=== PATIENT | female | born 1980 | race Caucasian/White ===

== ENCOUNTER 2017-10-26 23:26 | Outpatient (CLI) | payer SELFPAY, OTHER ==
[2017-10-27 03:04] LABS: ADD UMIC YES; UR ASCORBIC ACID NEGATIVE (NEGATIVE); UR BACTERIA FEW /HPF (NONE SEEN); UR BILIRUBIN (Dip) NEGATIVE (NEGATIVE); UR BLOOD (Dip) 1+ mg/dL (NEGATIVE); UR BUDDING YEAST FEW /HPF (NONE SEEN); UR CLARITY SLIGHTLY CLOUDY (CLEAR); UR COLOR YELLOW (YELLOW); UR GLUCOSE (Dip) 3+ mg/dL (NEGATIVE); UR KETONES (Dip) TRACE mg/dL (NEGATIVE); UR LEUKOCYTE ESTERASE (Dip) 2+ Leu/ul (NEGATIVE); UR NITRITE (Dip) NEGATIVE (NEGATIVE); UR RBC 1 /HPF (0-5); UR SPECIFIC GRAVITY (Dip) 1.037 (1.003-1.030); UR SQUAMOUS EPITHELIAL CELL FEW /HPF (FEW); UR TOTAL PROTEIN (Dip) NEGATIVE (NEGATIVE); UR UROBILINOGEN (Dip) NEGATIVE (NEGATIVE); UR WBC 9 /HPF (0-5)
[2017-10-27] MEDS: CEFTRIAXONE 1 GM INJ IM (04:07)
== END 2017-10-27 04:13 | disposition home or self-care (01) ==
LOC: OBT 23:26 → L-D 23:27
DX: O24.415 Gestational diabetes mellitus in pregnancy, controlled by oral hypoglycemic drugs (principal); O13.3 Gestational [pregnancy-induced] hypertension without significant proteinuria, third trimester; O34.219 Maternal care for unspecified type scar from previous cesarean delivery; O99.213 Obesity complicating pregnancy, third trimester; E66.01 Morbid (severe) obesity due to excess calories; O09.523 Supervision of elderly multigravida, third trimester; Z3A.31 31 weeks gestation of pregnancy
CPT/HCPCS: 76817; 76818; 81001; 82731; 87086; 96372

== ENCOUNTER 2017-11-22 15:40 | Inpatient (IN) | payer OTHER ==
[2017-11-22 16:34] LABS: ADD MAN DIFF? NO
[2017-11-22 16:36] LABS: BASOPHILS % 0.3 % (0.0-2.0); EOSINOPHILS % 0.1 % (0.0-7.0); HEMATOCRIT 36.5 % (37.0-47.0); HEMOGLOBIN 12.3 g/dl (12.0-16.0); LYMPHOCYTES # 1.8 10^3/ul (0.8-2.9); LYMPHOCYTES % 24.7 % (15.0-51.0); MEAN CORPUSCULAR HEMOGLOBIN 31.1 pg (29.0-33.0); MEAN CORPUSCULAR HGB CONC 33.7 g/dl (32.0-37.0); MEAN CORPUSCULAR VOLUME 92.2 fl (82.0-101.0); MEAN PLATELET VOLUME 12.2 fl (7.4-10.4); MONOCYTE # 0.4 10^3/ul (0.3-0.9); MONOCYTES % 5.9 % (0.0-11.0); NEUTROPHILS % 68.6 % (39.0-77.0); PLATELET COUNT 271 10^3/UL (140-415); RED BLOOD COUNT 3.96 10^6/ul (4.20-5.40); RED CELL DISTRIBUTION WIDTH 12.6 % (11.5-14.5)
[2017-11-22 16:36] LABS: WHITE BLOOD COUNT 7.3 10^3/ul (4.8-10.8)
[2017-11-22 17:21] LABS: ALANINE AMINOTRANSFERASE 22 IU/L (13-69); ALBUMIN 3.1 g/dl (3.3-4.9); ALBUMIN/GLOBULIN RATIO 0.86; ALKALINE PHOSPHATASE 197 IU/L (42-121); ANION GAP 17 (8-16); ASPARTATE AMINO TRANSFERASE 22 IU/L (15-46); BILIRUBIN,INDIRECT 0.3 mg/dl (0-1.1); BILIRUBIN,TOTAL 0.3 mg/dl (0.2-1.3); BLOOD UREA NITROGEN 8 mg/dl (7-20); CALCIUM 9.3 mg/dl (8.4-10.2); CARBON DIOXIDE 17 mmol/L (21-31); CHLORIDE 104 mmol/L (97-110); CREATININE 0.58 mg/dl (0.44-1.00); GLUCOSE 365 mg/dl (70-220); POTASSIUM 4.3 mmol/L (3.5-5.1); SODIUM 134 mmol/L (135-144); TOTAL PROTEIN 6.7 g/dl (6.1-8.1); URIC ACID 6.6 mg/dl (3.1-7.9)
[2017-11-22] MEDS: ACCU-CHEK XX ×4 (17:33→21:16)
[2017-11-22 17:55] LABS: FREE T4 (FREE THYROXINE) 1.21 ng/dl (0.79-2.35)
[2017-11-22 17:55] LABS: FREE T3 3.03 pg/ml (2.77-5.27)
[2017-11-22 19:31] LABS: HEMOGLOBIN A1C 10.4 % (0-5.9)
[2017-11-22] MEDS ORDERED: GLUCOSE GEL 15 GRAM TUBE BUCCAL (21:00)
[2017-11-22] MEDS ORDERED: GLUCAGON 1 MG INJ IM (21:00)
[2017-11-22] MEDS ORDERED: GLUCOSE GEL 15 GRAM TUBE PO ×2 (21:00)
[2017-11-22] MEDS ORDERED: DEXTROSE 50% 50 ML SYRINGE IV ×2 (21:00)
[2017-11-22] MEDS: INSULIN ASPART [NOVOLOG] 3 ML PEN SC (21:34)
[2017-11-23] MEDS: INSULIN ASPART [NOVOLOG] 3 ML PEN SC ×3 (02:23→17:42)
[2017-11-23] MEDS: ACCU-CHEK XX ×8 (08:01→21:40)
[2017-11-23 16:50] LABS: COLLECTION PERIOD 24 hrs
[2017-11-23 18:56] LABS: COLLECTION PERIOD 24 hrs; CREATININE CLEARANCE 93.8 mls/min (84.0-162.0); CREATININE,URINE RANDOM 149.15 mg/dl (20-320); SCRET 0.58 mg/dl (0.44-1.00); VOLUME 525 ml/24hrs; VOLUME 525 mls
[2017-11-23] MEDS: NPH, HUMAN INSULIN ISOPHANE 3ML VIAL SC (20:10)
[2017-11-24] MEDS: ACCU-CHEK XX ×8 (07:30→22:19)
[2017-11-24] MEDS: INSULIN ASPART [NOVOLOG] 3 ML PEN SC ×2 (08:36→17:55)
[2017-11-24] MEDS: NPH, HUMAN INSULIN ISOPHANE 3ML VIAL SC ×2 (08:38→20:32)
[2017-11-24 15:19] LABS: ADD UMIC YES; UR ASCORBIC ACID NEGATIVE (NEGATIVE); UR BILIRUBIN (Dip) NEGATIVE (NEGATIVE); UR BLOOD (Dip) NEGATIVE (NEGATIVE); UR CLARITY CLEAR (CLEAR); UR COLOR YELLOW (YELLOW); UR GLUCOSE (Dip) NEGATIVE (NEGATIVE); UR KETONES (Dip) NEGATIVE (NEGATIVE); UR LEUKOCYTE ESTERASE (Dip) 1+ Leu/ul (NEGATIVE); UR NITRITE (Dip) NEGATIVE (NEGATIVE); UR RBC 1 /HPF (0-5); UR SPECIFIC GRAVITY (Dip) 1.009 (1.003-1.030); UR SQUAMOUS EPITHELIAL CELL FEW /HPF (FEW); UR TOTAL PROTEIN (Dip) NEGATIVE (NEGATIVE); UR UROBILINOGEN (Dip) NEGATIVE (NEGATIVE); UR WBC 5 /HPF (0-5)
[2017-11-25] MEDS: ZINC OXIDE 13% (DESITIN) CREAM 2 OZ TUBE TOP (01:13)
[2017-11-25] MEDS: FLUCONAZOLE 150 MG TAB PO ×2 (01:13→23:50)
[2017-11-25] MEDS: ACCU-CHEK XX ×8 (07:30→21:46)
[2017-11-25] MEDS: INSULIN ASPART [NOVOLOG] 3 ML PEN SC ×2 (08:14→18:13)
[2017-11-25] MEDS: NPH, HUMAN INSULIN ISOPHANE 3ML VIAL SC ×2 (08:16→21:51)
[2017-11-25] MEDS: PRENATAL VITAMIN PO (08:19)
[2017-11-26] MEDS: ACCU-CHEK XX ×6 (08:45→20:34)
[2017-11-26] MEDS: INSULIN ASPART [NOVOLOG] 3 ML PEN SC ×2 (08:47→18:01)
[2017-11-26] MEDS: NPH, HUMAN INSULIN ISOPHANE 3ML VIAL SC ×3 (08:48→21:33)
[2017-11-26] MEDS: PRENATAL VITAMIN PO (08:52)
== END 2017-11-26 22:00 | disposition home or self-care (01) | DRG 781 ==
LOC: L-D 15:40 → PP1 17:18
PROVIDERS: Obstetrics & Gynecology
DX: O24.113 Pre-existing type 2 diabetes mellitus, in pregnancy, third trimester (principal); Z68.43 Body mass index [BMI] 50.0-59.9, adult; E11.65 Type 2 diabetes mellitus with hyperglycemia; O34.211 Maternal care for low transverse scar from previous cesarean delivery; O99.213 Obesity complicating pregnancy, third trimester; E66.01 Morbid (severe) obesity due to excess calories; Z3A.34 34 weeks gestation of pregnancy; Z91.14 Patient's other noncompliance with medication regimen; O09.33 Supervision of pregnancy with insufficient antenatal care, third trimester; O09.523 Supervision of elderly multigravida, third trimester
CPT/HCPCS: 76815; 76818; 80053; 81001; 82575; 82962; 83036; 84156; 84439; 84443; 84481; 84560; 85025; 87086

== ENCOUNTER 2017-11-30 06:27 | Inpatient (IN) | payer OTHER ==
[2017-11-30] MEDS ORDERED: ACETAMINOPHEN 1000 MG/100 ML IVPB (07:00)
[2017-11-30] MEDS ORDERED: ROCURONIUM 50 MG INJ (07:00)
[2017-11-30] MEDS ORDERED: EPHEDrine SULFATE 50 MG/5 ML SYG (07:00)
[2017-11-30 07:44] LABS: RUPTURE FETAL MEMBRANES POSITIVE (NEGATIVE)
[2017-11-30] MEDS ORDERED: DEXTROSE 50% 50 ML SYRINGE IV ×2 (08:30)
[2017-11-30] MEDS ORDERED: GLUCAGON 1 MG INJ IM (08:30)
[2017-11-30] MEDS ORDERED: GLUCOSE GEL 15 GRAM TUBE BUCCAL (08:30)
[2017-11-30] MEDS ORDERED: GLUCOSE GEL 15 GRAM TUBE PO ×2 (08:30)
[2017-11-30] MEDS ORDERED: ACCU-CHEK XX (09:35)
[2017-11-30] MEDS: LACTATED RINGER'S 1,000 ML IV ×4 (09:40→18:33)
[2017-11-30 09:56] LABS: ADD MAN DIFF? NO
[2017-11-30 10:12] LABS: BASOPHILS % 0.3 % (0.0-2.0); EOSINOPHILS % 0.3 % (0.0-7.0); HEMATOCRIT 36.7 % (37.0-47.0); HEMOGLOBIN 11.9 g/dl (12.0-16.0); LYMPHOCYTES # 2.3 10^3/ul (0.8-2.9); LYMPHOCYTES % 29.2 % (15.0-51.0); MEAN CORPUSCULAR HEMOGLOBIN 30.3 pg (29.0-33.0); MEAN CORPUSCULAR HGB CONC 32.4 g/dl (32.0-37.0); MEAN CORPUSCULAR VOLUME 93.4 fl (82.0-101.0); MEAN PLATELET VOLUME 12.6 fl (7.4-10.4); MONOCYTE # 0.5 10^3/ul (0.3-0.9); NEUTROPHIL # 5.1 10^3/ul (1.6-7.5); NEUTROPHILS % 63.8 % (39.0-77.0); PLATELET COUNT 265 10^3/UL (140-415); RED BLOOD COUNT 3.93 10^6/ul (4.20-5.40); RED CELL DISTRIBUTION WIDTH 12.9 % (11.5-14.5)
[2017-11-30 10:12] LABS: WHITE BLOOD COUNT 7.9 10^3/ul (4.8-10.8)
[2017-11-30 10:19] LABS: INR 0.93; PROTIME 12.6 Sec (11.9-14.9)
[2017-11-30 10:20] LABS: PARTIAL THROMBOPLASTIN TIME 33.3 Sec (25.0-35.0)
[2017-11-30 10:21] LABS: ALANINE AMINOTRANSFERASE 24 IU/L (13-69); ALBUMIN 2.9 g/dl (3.3-4.9); ALBUMIN/GLOBULIN RATIO 0.85; ALKALINE PHOSPHATASE 220 IU/L (42-121); ANION GAP 10 (8-16); ASPARTATE AMINO TRANSFERASE 38 IU/L (15-46); BILIRUBIN,INDIRECT 0.4 mg/dl (0-1.1); BILIRUBIN,TOTAL 0.4 mg/dl (0.2-1.3); BLOOD UREA NITROGEN 9 mg/dl (7-20); CALCIUM 8.6 mg/dl (8.4-10.2); CARBON DIOXIDE 19 mmol/L (21-31); CHLORIDE 113 mmol/L (97-110); CREATININE 0.62 mg/dl (0.44-1.00); GLUCOSE 74 mg/dl (70-220); POTASSIUM 4.2 mmol/L (3.5-5.1); SODIUM 138 mmol/L (135-144); TOTAL PROTEIN 6.3 g/dl (6.1-8.1); URIC ACID 8.5 mg/dl (3.1-7.9)
[2017-11-30 10:25] LABS: HEMOGLOBIN A1C 10.8 % (0-5.9)
[2017-11-30] MEDS ORDERED: CARBOPROST 250 MCG INJ IM ×4 (10:30→19:00)
[2017-11-30] MEDS ORDERED: METHYLERGONOVINE 0.2 MG INJ IM ×3 (10:30→19:00)
[2017-11-30] MEDS ORDERED: OXYTOCIN 30 UNITS/LR 500 ML IV ×7 (10:30→19:00)
[2017-11-30 10:34] LABS: FIBRIN SPLIT PRODUCT <10 ug/ml (<10)
[2017-11-30] MEDS: AMPICILLIN 2 GM/NS (PMX) 100 ML IVPB (10:43)
[2017-11-30] MEDS: FAMOTIDINE 20 MG INJ IV ×2 (12:54→13:00)
[2017-11-30] MEDS: METOCLOPRAMIDE 10 MG INJ IV ×2 (12:55→13:00)
[2017-11-30] MEDS: CITRIC ACID/SODIUM CITRATE 15 ML CUP PO ×2 (12:56→13:00)
[2017-11-30] MEDS ORDERED: ONDANSETRON 4 MG INJ (14:11)
[2017-11-30] MEDS ORDERED: morphine SULFATE/PF (10 MG/10 ML) INJ (14:11)
[2017-11-30] MEDS ORDERED: BUPIVACAINE 0.75%/DEXT (SPINAL) 2 ML INJ (14:11)
[2017-11-30] MEDS ORDERED: CEFAZOLIN 1 GM INJ (14:31)
[2017-11-30] MEDS ORDERED: PHENYLephrine (100 MCG/ML) 5ML SYG (14:31)
[2017-11-30 14:59] LABS: RAPID PLASMA REAGIN NONREACTIVE (NR)
[2017-11-30 15:00] LABS: Arterial Cord Blood pCO2 76.1 mmHG (25-50); CBA Base Excess -11.9 mmol/L; CBA COHb 0.3 %; CBA Total Hemglobin 13.7 g/dl; Fraction OxyHgb Cord Arterial 8.2 %; MODE ROOM AIR; MetHgb Cord Arterial 2.2 %; Sample Type CBA; Site CORD
[2017-11-30] MEDS ORDERED: HYDROmorphONE 1 MG/5 ML IV SYRINGE IV ×3 (15:00)
[2017-11-30] MEDS ORDERED: DIPHENHYDRAMINE 50 MG INJ IV (15:00)
[2017-11-30] MEDS ORDERED: ONDANSETRON 4 MG INJ IV (15:00)
[2017-11-30] MEDS ORDERED: FENTAnyl 50 MCG/ML VIAL IV (15:00)
[2017-11-30] MEDS ORDERED: PROCHLORPERAZINE 10 MG INJ IV (15:00)
[2017-11-30] MEDS ORDERED: MEPERIDINE 25 MG INJ IV (15:00)
[2017-11-30 15:01] LABS: CBV Base Excess -9.5 mmol/L; CBV COHb 0.3 %; CBV Oxygen Sat 16.6 mmHG; CBV Total Hemglobin 14.7 g/dl; Cord Blood Venous pO2 14.4 mmHG (15.0-45.0); Fraction OxyHgb Cord Venous 16.2 %; MODE ROOM AIR; Sample Type CBV; Site CORD
[2017-11-30] MEDS: CEFAZOLIN 2 GM/50 ML (PMX) 50 ML IV ×3 (15:55→22:52)
[2017-11-30] MEDS: MISOPROSTOL 200 MCG TAB PR ×2 (16:36→17:50)
[2017-11-30] MEDS: OXYTOCIN 30 UNITS/LR 500 ML IV ×3 (17:18→21:31)
[2017-11-30] MEDS ORDERED: LACTATED RINGER'S 1,000 ML IV (18:33)
[2017-11-30] MEDS ORDERED: LANOLIN 7 GM TUBE TOP ×2 (19:00)
[2017-11-30] MEDS: INSULIN ASPART [NOVOLOG] 3 ML PEN SC (19:00)
[2017-11-30] MEDS ORDERED: HYDROCODONE/APAP (5/325) TAB PO ×2 (19:00)
[2017-11-30] MEDS ORDERED: OXYCODONE/ACETAMINOPHEN (5/325) TAB PO (19:00)
[2017-11-30] MEDS ORDERED: NALOXONE (0.4 MG/ML) INJ IV (19:00)
[2017-11-30] MEDS ORDERED: ZOLPIDEM 5 MG TAB PO (19:00)
[2017-11-30] MEDS ORDERED: MISOPROSTOL 200 MCG TAB PR ×3 (19:00)
[2017-11-30] MEDS ORDERED: HYDROmorphONE 0.5 MG/0.5 ML SYG IV ×2 (19:00)
[2017-11-30 19:28] LABS: ADD MAN DIFF? NO
[2017-11-30 19:30] LABS: BASOPHILS % 0.3 % (0.0-2.0); HEMATOCRIT 36.7 % (37.0-47.0); HEMOGLOBIN 11.8 g/dl (12.0-16.0); LYMPHOCYTES # 1.8 10^3/ul (0.8-2.9); LYMPHOCYTES % 17.5 % (15.0-51.0); MEAN CORPUSCULAR HGB CONC 32.2 g/dl (32.0-37.0); MEAN CORPUSCULAR VOLUME 93.4 fl (82.0-101.0); MEAN PLATELET VOLUME 12.2 fl (7.4-10.4); MONOCYTE # 0.6 10^3/ul (0.3-0.9); MONOCYTES % 5.8 % (0.0-11.0); NEUTROPHIL # 7.9 10^3/ul (1.6-7.5); PLATELET COUNT 258 10^3/UL (140-415); RED BLOOD COUNT 3.93 10^6/ul (4.20-5.40); RED CELL DISTRIBUTION WIDTH 12.8 % (11.5-14.5)
[2017-11-30 19:30] LABS: WHITE BLOOD COUNT 10.4 10^3/ul (4.8-10.8)
[2017-11-30] MEDS: ONDANSETRON 4 MG INJ IV (20:18)
[2017-11-30] MEDS ORDERED: INSULIN ASPART [NOVOLOG] 3 ML PEN SC (21:00)
[2017-11-30] MEDS: ACCU-CHEK XX (21:00)
[2017-12-01] MEDS: ACCU-CHEK XX ×2 (02:00→05:41)
[2017-12-01] MEDS: LACTATED RINGER'S 1,000 ML IV ×2 (03:15→10:37)
[2017-12-01] MEDS: DIPHENHYDRAMINE 50 MG INJ IV ×2 (03:18→09:59)
[2017-12-01] MEDS: OXYTOCIN 30 UNITS/LR 500 ML IV ×2 (04:00)
[2017-12-01] MEDS: CEFAZOLIN 2 GM/50 ML (PMX) 50 ML IV ×2 (06:47→14:49)
[2017-12-01 07:15] LABS: ADD MAN DIFF? NO
[2017-12-01 07:16] LABS: BASOPHILS % 0.2 % (0.0-2.0); EOSINOPHILS % 0.1 % (0.0-7.0); HEMATOCRIT 31.7 % (37.0-47.0); HEMOGLOBIN 10.2 g/dl (12.0-16.0); LYMPHOCYTES # 1.7 10^3/ul (0.8-2.9); LYMPHOCYTES % 21.5 % (15.0-51.0); MEAN CORPUSCULAR HEMOGLOBIN 30.4 pg (29.0-33.0); MEAN CORPUSCULAR HGB CONC 32.2 g/dl (32.0-37.0); MEAN CORPUSCULAR VOLUME 94.3 fl (82.0-101.0); MEAN PLATELET VOLUME 11.9 fl (7.4-10.4); MONOCYTE # 0.7 10^3/ul (0.3-0.9); MONOCYTES % 8.9 % (0.0-11.0); NEUTROPHIL # 5.5 10^3/ul (1.6-7.5); NEUTROPHILS % 68.9 % (39.0-77.0); PLATELET COUNT 210 10^3/UL (140-415); RED BLOOD COUNT 3.36 10^6/ul (4.20-5.40); RED CELL DISTRIBUTION WIDTH 12.8 % (11.5-14.5)
[2017-12-01] MEDS ORDERED: INSULIN ASPART [NOVOLOG] 3 ML PEN SC ×2 (07:35→08:05)
[2017-12-01 08:06] LABS: HEPATITIS B SURFACE ANTIGEN NEGATIVE (NEGATIVE)
[2017-12-01] MEDS: KETOROLAC 30 MG INJ IV (12:45)
[2017-12-01] MEDS ORDERED: metFORMIN 500 MG TAB PO (13:00)
[2017-12-01] MEDS: IBUPROFEN 600 MG TAB PO (17:46)
[2017-12-01] MEDS: metFORMIN 500 MG TAB PO (19:16)
[2017-12-01] MEDS ORDERED: INSULIN GLARGINE [LANTus] (100 UNITS/ML) SYG SC (20:00)
[2017-12-02] MEDS: IBUPROFEN 600 MG TAB PO ×5 (00:21→23:38)
[2017-12-02] MEDS: ACCU-CHEK XX (02:00)
[2017-12-02] MEDS ORDERED: ACCU-CHEK XX (07:35)
[2017-12-02] MEDS: metFORMIN 500 MG TAB PO ×2 (09:04→18:57)
[2017-12-03] MEDS: ACCU-CHEK XX (01:58)
[2017-12-03] MEDS: IBUPROFEN 600 MG TAB PO ×3 (05:39→17:31)
[2017-12-03] MEDS: metFORMIN 500 MG TAB PO (08:33)
[2017-12-03] MEDS: MEASLES,MUMPS,RUBELLA VACCINE INJ SC* (09:00)
[2017-12-03] MEDS: DIPHTH/TET/ACEL PERTUSS (ADULT) 0.5 ML VIAL IM* (17:32)
== END 2017-12-03 18:57 | disposition home or self-care (01) | DRG 765 ==
LOC: OBT 06:27 → L-D 06:27 → OBT 07:50 → L-D 07:50 → PP1 18:25
PROVIDERS: Obstetrics & Gynecology
PROC: 10D00Z1 Extraction of Products of Conception, Low, Open Approach (ICD-10-PCS; principal; 2017-11-30)
PROC: 3E033VJ Introduction of Other Hormone into Peripheral Vein, Percutaneous Approach (ICD-10-PCS; 2017-11-30)
DX: O34.211 Maternal care for low transverse scar from previous cesarean delivery (principal); O60.14X0 Preterm labor third trimester with preterm delivery third trimester, not applicable or unspecified; Z68.43 Body mass index [BMI] 50.0-59.9, adult; O99.214 Obesity complicating childbirth; E66.01 Morbid (severe) obesity due to excess calories; O24.419 Gestational diabetes mellitus in pregnancy, unspecified control; O16.4 Unspecified maternal hypertension, complicating childbirth; Z3A.35 35 weeks gestation of pregnancy; Z37.0 Single live birth
CPT/HCPCS: 36415; 36600; 76815; 76818; 80053; 82803; 82962; 83036; 84112; 84560; 85025; 85362; 85384; 85610; 85730; 86592; 86850; 86900; 86901; 87340; 88307; 90715; 99464

== ENCOUNTER 2017-12-08 07:49 | Emergency (ER) | payer OTHER ==
[2017-12-08] MEDS: morphine 4 MG/ML VIAL IV (08:00)
[2017-12-08] MEDS: ONDANSETRON 4 MG INJ IV (08:00)
[2017-12-08 08:56] LABS: ADD MAN DIFF? NO; BASOPHILS % 0.5 % (0.0-2.0); EOSINOPHILS # 0.2 10^3/ul (0.0-0.5); EOSINOPHILS % 1.9 % (0.0-7.0); HEMATOCRIT 31.2 % (37.0-47.0); LYMPHOCYTES # 1.8 10^3/ul (0.8-2.9); LYMPHOCYTES % 22.5 % (15.0-51.0); MEAN CORPUSCULAR HEMOGLOBIN 30.4 pg (29.0-33.0); MEAN CORPUSCULAR HGB CONC 32.1 g/dl (32.0-37.0); MEAN CORPUSCULAR VOLUME 94.8 fl (82.0-101.0); MEAN PLATELET VOLUME 9.4 fl (7.4-10.4); MONOCYTE # 0.5 10^3/ul (0.3-0.9); MONOCYTES % 6.3 % (0.0-11.0); NEUTROPHIL # 5.3 10^3/ul (1.6-7.5); NUCLEATED RED BLOOD CELLS% 0.4 /100WBC (0.0-0.0); PLATELET COUNT 434 10^3/UL (140-415); RED BLOOD COUNT 3.29 10^6/ul (4.20-5.40)
[2017-12-08 09:15] LABS: INR 0.97
[2017-12-08 09:16] LABS: PARTIAL THROMBOPLASTIN TIME 33.5 Sec (25.0-35.0)
[2017-12-08 09:21] LABS: ALANINE AMINOTRANSFERASE 39 IU/L (13-69); ALBUMIN 2.9 g/dl (3.3-4.9); ALBUMIN/GLOBULIN RATIO 0.87; ALKALINE PHOSPHATASE 191 IU/L (42-121); AMYLASE 44 U/L (11-123); ANION GAP 10 (8-16); ASPARTATE AMINO TRANSFERASE 75 IU/L (15-46); BILIRUBIN,INDIRECT 0.3 mg/dl (0-1.1); BILIRUBIN,TOTAL 0.3 mg/dl (0.2-1.3); BLOOD UREA NITROGEN 6 mg/dl (7-20); CALCIUM 8.4 mg/dl (8.4-10.2); CARBON DIOXIDE 24 mmol/L (21-31); CHLORIDE 109 mmol/L (97-110); CREATININE 0.53 mg/dl (0.44-1.00); GLUCOSE 99 mg/dl (70-220); LIPASE 72 U/L (23-300); POTASSIUM 4.2 mmol/L (3.5-5.1); SODIUM 139 mmol/L (135-144); TOTAL PROTEIN 6.2 g/dl (6.1-8.1)
[2017-12-08 09:32] LABS: TROPONIN-I < 0.010 ng/ml (0.000-0.120)
[2017-12-08] MEDS: SOD CHLORIDE 0.9% 1,000 ML IV (09:33)
[2017-12-08] MEDS: KETOROLAC 30 MG INJ IV (10:01)
== END 2017-12-08 11:27 | disposition home or self-care (01) ==
LOC: E/R 07:49
DX: O99.89 Other specified diseases and conditions complicating pregnancy, childbirth and the puerperium (principal); G97.1 Other reaction to spinal and lumbar puncture; R60.0 Localized edema; E11.9 Type 2 diabetes mellitus without complications; Z79.4 Long term (current) use of insulin
CPT/HCPCS: 70450; 80053; 82150; 83690; 84484; 85025; 85610; 85730; 96374; 99285-25

== ENCOUNTER 2018-08-26 12:33 | Emergency (ER) | payer OTHER ==
[2018-08-26] MEDS: LIDOCAINE 1% (MDV) 20 ML INJ SC (15:00)
[2018-08-26] MEDS: IBUPROFEN 600 MG TAB PO (15:01)
== END 2018-08-26 15:25 | disposition home or self-care (01) ==
LOC: FTE 12:33
DX: N75.1 Abscess of Bartholin's gland (principal); E11.9 Type 2 diabetes mellitus without complications; Z79.4 Long term (current) use of insulin
CPT/HCPCS: 56420; 99283-25